=== PATIENT | male | born 1970 | race Caucasian/White ===

== ENCOUNTER → 2022-09-18 | Outpatient (CLI) | payer OTHER | END | disposition home or self-care (01) | LOC: LAB SHORT 13:56 | DX: L08.9 Local infection of the skin and subcutaneous tissue, unspecified (principal); L85.3 Xerosis cutis | CPT/HCPCS: 87070; 87077; 87147; 87186; 87205 ==

== ENCOUNTER 2023-09-05 10:39 | Emergency (ER) | payer OTHER ==
[~2023-09-05] VITALS: Ht 180.3 cm; Wt 98.0 kg
[2023-09-05 10:47] VITALS: BP 127/91
[2023-09-05] MEDS ORDERED: PAXLOVID 300-11 EAC1 PO (10:59)
== END 2023-09-05 11:10 | disposition home or self-care (01) ==
LOC: ER 10:39
DX: U07.1 COVID-19 (principal)
CPT/HCPCS: 99283

== ENCOUNTER 2025-06-20 12:12 | Emergency (ER) | payer OTHER ==
[~2025-06-20] VITALS: Ht 180.3 cm; Wt 95.7 kg
[~2025-06-20 12:12] MED LIST: PAXLOVID 300-11 EAC1 PO
[2025-06-20 12:17] VITALS: BP 122/88
== END 2025-06-20 13:50 | disposition home or self-care (01) ==
LOC: ER 12:12
DX: S61.012A Laceration without foreign body of left thumb without damage to nail, initial encounter (principal); W26.8XXA Contact with other sharp object(s), not elsewhere classified, initial encounter; Z23 Encounter for immunization
CPT/HCPCS: 12001; 90471; 90715; 99282-25